=== PATIENT | male | born 1980 | race Two or more races ===

== ENCOUNTER 2024-10-25 08:09 | Emergency (ER) | payer MEDICAID, SELFPAY ==
--- NOTE | 2024-10-25 08:30 | XR_ITS ---
Examination: Abdomen sonogram, Limited Date and time of exam: October 25, 2024 0847 hours INDICATIONS: Right upper abdominal pain beginning 3 days ago. Technique: Real-time bowles scale transabdominal sonographic images of the upper abdomen obtained. Findings: Normal gallbladder. Normal common bile duct 0.3 cm. Pancreatic head 2.5 cm Liver 13.9 cm fatty infiltration no focal liver lesions Normal hepatopedal portal venous flow Patent IVC 32 mm right renal cyst IMPRESSION: Normal gallbladder
[2024-10-25 08:32] VITALS: BP 173/98; PULSE 71; RESP 16; TEMP 37.1; O2SAT 97; BMI 30.7
--- NOTE | 2024-10-25 08:43 | XR_ITS ---
Examination: CT abdomen and pelvis without contrast. Coronal 3-D reconstructions. Sagittal 2-D reconstructions. Date and time of exam:October 25, 2024 0940 hours INDICATIONS: Right lower abdominal pain radiating to the back today CTDI: vol (mGy): 9.28 DLP: (mGycm): 11 Technique: Axial images of the abdomen have been obtained, 3 mm slice thickness Intravenous contrast material has not been administered. Low dose protocols were performed. One or more of the following dose reduction techniques were used; automated exposure control, adjustment of the mA and/or KV according to patient size, use of iterative reconstruction technique. Findings: No focal liver or splenic lesions No gallstones No pancreatic or adrenal mass. Mild renal parenchymal scar formation. Bilateral renal cysts. Aorta normal size. Normal appendix No bowel obstruction No bladder mass The osseous structures are intact with mild lumbar spondylosis IMPRESSION: Mild renal parenchymal scar formation, no hydronephrosis renal or ureteral calculi. Normal appendix No bowel obstruction diverticulitis or free air. Mild lumbar spondylosis
--- NOTE | 2024-10-25 08:43 | PD.EDRME ---
Rapid Medical Screening Exam RME Arrival date/time: 10/25/24 08:09 44-year-old male presents to the emergency room today for complaints of right flank pain and right side abdominal pain Chief Complaint: Abdominal Pain Vital signs: Vital Signs Temperature 98.8 F 10/25/24 08:32 Pulse Rate 71 10/25/24 08:32 Respiratory Rate 16 10/25/24 08:32 Blood Pressure 173/98 H 10/25/24 08:32 Pulse Oximetry (%) 97 10/25/24 08:32 Oxygen Delivery Method Room Air 10/25/24 08:32
[2024-10-25 09:00] LABS: Collection Type, Urine Clean Catch
[2024-10-25 09:03] LABS: Basophils # (Auto) 0.1 Thou/mm3 (0.0-0.2); Basophils % (Auto) 1 % (0-2.5); Eosinophils # (Auto) 0.1 Thou/mm3 (0.0-0.5); Eosinophils % (Auto) 1 % (0-10); Hematocrit 49.7 % (41.0-53.0); Hemoglobin 16.4 g/dL (13.5-16.0); Immature Granulocytes Auto 0.02 Thou/mm3 (0.00-0.00); Lymphocytes # (Auto) 2.8 Thou/mm3 (1.0-4.8); Lymphocytes % (Auto) 24 % (10-50); Mean Corpuscular HGB Conc 33.0 g/dl (31.0-37.0); Mean Corpuscular Hemoglobin 29.9 pg (25.0-35.0); Mean Corpuscular Volume 91 fL (80-100); Monocytes # (Auto) 0.8 Thou/mm3 (0.0-0.8); Monocytes % (Auto) 7 % (0-12); Neutrophils # (Auto) 7.9 Thou/mm3 (1.8-7.7); Neutrophils % (Auto) 68 % (37-80); Nucleated Red Blood Cell # 0.00 Thou/mm3 (0.00-0.00); Nucleated Red Blood Cell % 0 /100 WBC (0); Platelet Count 202 Thou/mm3 (140-440); RDW Standard Deviation 45.1 fL (35.1-43.9); Red Blood Count 5.49 Miln/mm3 (4.50-5.90); White Blood Count 11.7 Thou/mm3 (3.8-10.6)
[2024-10-25 09:10] LABS: Bilirubin,Urine Negative (Negative); Blood,Urine Negative (Negative); Clarity,Urine Clear (Clear/Hazy); Color,Urine Yellow (Lt Yel-Yel); Culture Indicated,Urine Not Indicated; Glucose, Urine Negative (Negative); Ketones,Urine Negative (Negative); Leukocyte Esterase,Urine Negative (Negative); Nitrite,Urine Negative (Negative); PH,Urine 7.0 (5.0-7.0); Protein,Urine Trace (Neg - Trace); RBC,Urine 2 /hpf (0-3); Specific Gravity,Urine 1.028 (1.001-1.035); Squamous Epithelial Cell,Urine < 1 /hpf (0-5); Urobilinogen,Urine Negative mg/dL (0.0-1.0); WBC,Urine 1 /hpf (0-5)
[2024-10-25 09:22] LABS: Alanine Aminotransferase 50 U/L (10-49); Albumin, Serum 4.6 gm/dL (3.5-5.0); Albumin/Globulin Ratio 1.6 (1.2-2.2); Alkaline Phosphatase 133 U/L (46-116); Anion Gap 8 (7-16); Aspartate Amino Transferase 25 U/L (0-34); BUN/Creatinine Ratio 13 Ratio (12-20); Bilirubin,Total 0.8 mg/dL (0.3-1.2); Blood Urea Nitrogen 10 mg/dL (9-23); Calcium 10.0 mg/dL (8.3-10.6); Calcium (Corrected) 10.0 mg/dL (8.5-10.1); Carbon Dioxide 29.0 mMol/L (20.0-31.0); Chloride 105 mMol/L (98-107); Creatinine (Component) 0.8 mg/dL (0.6-1.3); Estimated Creatinine Clearance 126.8 mL/min (>60); Globulin 2.9 gm/dL (2.3-3.5); Glucose 111 mg/dL (74-106); Lipase 30 U/L (12-53); Osmolality,Calculated 283 (275-295); Potassium 3.9 mMol/L (3.4-5.1); Sodium 142 mMol/L (136-145); Total Protein 7.5 gm/dL (5.7-8.2); eGFR > 60 See Note
--- NOTE | 2024-10-25 12:32 | EDNOTE_ITS ---
<Statement entered by Vesta Mckay MD - 11/04/24 11:11> As co-signing physician, I was present and available for consult prn. I concur with the plan and care as documented by the midlevel provider. ED Abdominal Pain RME/HPI General Chief Complaint: Abdominal Pain Stated complaint: RUQ ABD PAIN Time seen by provider: 10/25/24 11:05 Arrival date/time: 10/25/24 08:09 RME / HPI RME / HPI narrative: 44-year-old male presents to the emergency room today for complaints of right flank pain and right side abdominal pain. Onset of symptoms for the last 1 week, severity of symptoms moderate. Patient denies any vomiting diarrhea constipation dysuria frequency hematuria or other complaints. Denies any trauma to the chest or abdomen. No medications taken prior to arrival. Related Data Previous Rx's ?Medication ?Instructions ?Recorded famotidine 20 mg tablet (Pepcid) 20 mg PO BID #30 tabs 10/25/24 ibuprofen 800 mg tablet 800 mg PO Q8H PRN pain #30 t abs 10/25/24 methocarbamol 500 mg tablet 500 mg PO Q8H PRN pain #20 tabs 10/25/24 Allergies Allergy/AdvReac Type Severity Reaction Status Date / Time No Known Allergies Allergy Verified 10/25/24 08:12 Review of Systems Review of Systems Narrative Review of Systems: Review of system reviewed and within normal limits except mentioned in HPI ED Exam Narrative Physical exam: VITAL SIGNS: Reviewed. GENERAL APPEARANCE: Alert and interactive, follows commands, no acute distress, HEAD AND FACE: Non-traumatic. ENT: PERRL, pink conjunctivitis, eyelid no trauma, Mucous membrane moist. NECK: Supple, nontender, no nuchal rigidity. CHEST: No tenderness, no crepitus, no paradoxical movement, no retractions. LUNGS: Clear, well ventilated, symmetric, no rales, no wheezing, no ronchi, no stridor, good breath sounds bilaterally. HEART: Regular rate, regular rhythm, no murmur, no gallops. ABDOMEN: Soft, positive bowel sounds, nondistended, no guarding, right upper quadrant tenderness, radiating to the flank area, no rebound, no masses, RECTAL: Deferred. GENITAL: Deferred. NEUROLOGICAL: Gross motor function intact sensory function intact, Appropriate for age. MUSCULOSKELETAL: low back nontender, full range of motion. EXTREMITIES: Nontender, full range of motion. SKIN: Color pink, dry, no rash, no lacerations, no abrasions, no contusions. LYMPHATICS: Deferred. Course Quality Measures none Orders Category Date Time Status CT abdomen pelvis wo con Stat Exams 10/25/24 08:43 Completed US gall bladder Stat Exams 10/25/24 08:30 Completed CBC Stat Lab 10/25/24 08:42 Completed Comprehensive Metabolic Panel Stat Lab 10/25/24 08:42 Completed Lipase Stat Lab 10/25/24 08:42 Completed UA, C/S IF [Urinalysis, C/S if Indicated] Stat Lab 10/25/24 08:53 Completed Vital Signs Vital signs: Vital Signs Temperature 98.8 F 10/25/24 08:32 Pulse Rate 71 10/25/24 08:32 Respiratory Rate 16 10/25/24 08:32 Blood Pressure 173/98 H 10/25/24 08:32 Pulse Oximetry (%) 97 10/25/24 08:32 Oxygen Delivery Method Room Air 10/25/24 08:32 Abdominal Pain MDM MDM Narrative MDM Narrative:: 44-year-old male presents to the emergency room today for complaints of right flank pain and right side abdominal pain. Onset of symptoms for the last 1 week, severity of symptoms moderate. Patient denies any vomiting diarrhea constipation dysuria frequency hematuria or other complaints. Denies any trauma to the chest or abdomen. No medications taken prior to arrival. Patient's laboratory workup today all came back unremarkable. Ultrasound of the gallbladder came back normal urinalysis no UTI. Ultrasound of gallbladder came back unremarkable. CT scan of the abdomen pelvis did not show any acute abnormality noted. Results discussed with the patient. Patient will be sent home on pain medication and muscle relaxant. Patient appears nontoxic and hemodynamically stable .Decision to discharge the patient. The patient/family was given an opportunity to ask questions and understood their discharge instructions. Discharge instructions specifically included follow up provider and time frame, current and/or new medications and possible side effects, indications for sooner follow up or return to the emergency department, and the expected course of current diagnosis. Patient reports feeling better as well and giving evidence of significant clinical improvement, I believe patient is now a candidate for discharge. Patient data External records reviewed:: None Clinical information provided by:: patient Social determinants that could affect healthcare access:: none Patient has the following chronic illnesses:: None How is presenting disease/condition affected by chronic disease/condition?: no chronic disease Evaluation data The following diagnostics were reviewed and interpreted by me:: lab results and radiology exam(s) Lab and/or radiology exams considered but not ordered:: None Interpretation Summary: See results MDM Medications / Prescriptions Medications or Prescriptions considered but not ordered:: None none Medication administrations:: None Consultations Consultation(s) initiated? (list below): No Diagnosis Differential diagnosis abdominal pain: abdominal pain, pancreatitis and small bowel obstruction Most likely diagnosis given after review of the tests above:: Abdominal pain, muscular Admission Indicated Admission indicated?: not indicated Admission Request Was there a request for admission?: No Disposition Plan Disposition Plan: Discharge Discharge Attestation Discharge Attestation: The patient and all family members were given an opportunity to ask questions and understood the discharge instructions. Discharge instructions specifically effects, indications for sooner follow up or return to the emergency department, and the expected course of current diagnosis. Patient condition: Stable Discharge Plan Plan Patient Disposition: HOME (Self Care) Discharge Disposition comment: stable Prescriptions/Referrals Prescriptions/Med Rec: New ibuprofen 800 mg tablet 800 mg PO Q8H PRN (Reason: pain) Qty: 30 0RF famotidine [Pepcid] 20 mg tablet 20 mg PO BID Qty: 30 0RF methocarbamol 500 mg tablet 500 mg PO Q8H PRN (Reason: pain) Qty: 20 0RF Referrals: No Primary/Family,Physician [Primary Care Provider] - In 1 week Problem List Clinical Impression: Abdominal muscle pain Patient/Caregiver Discharge Instructions Discharge Activity: activity as tolerated Education Materials: Communicating About Pain Additional Instructions: Thank you for the opportunity for serving you today. You are stable for discharged . You are advised to: Follow-up with your PCP in 1 to 2 days Return to ED for worsening of symptoms Increase oral fluids Take medication as prescribed Print Language: Hebrew Stand Alone Forms: Verito Award Info., Patient Portal Info Letter VIDYA/CLAUDIO Supervising Physician VIDYA/CLAUDIO Supervising Physician: MD Woody
[2024-10-25 12:38] VITALS: BP 128/77; PULSE 78; RESP 19; TEMP 36.6; O2SAT 97
== END 2024-10-25 12:39 | disposition home or self-care (01) ==
PROVIDERS: Nurse Practitioner Primary Care; Emergency Provider Emergency Medicine
DX: R10.11 Right upper quadrant pain (principal)
CPT/HCPCS: 36415; 74176; 76705; 80053; 81001; 83690; 85025; 99283